=== PATIENT | male | born 1960 | race Caucasian/White ===

== ENCOUNTER 2016-09-21 12:10 | Day surgery (SDC) | payer MEDICARE, OTHER ==
[~2016-09-21] VITALS: Ht 177.8 cm; Wt 79.4 kg
[~2016-09-21 12:10] MED LIST: BENZTROPINE0.5 MG PO; DIVALPROEX SOD500 M3 PO; MIRTAZAPINE15 MG PO; OLANZAPINE10 MG PO
[2016-09-21 17:31] VITALS: BP 131/73
== END 2016-09-21 15:50 ==
LOC: ENDO 12:10
PROVIDERS: ATTEND Internal Medicine Gastroenterology
PROC: 0DBP8ZX Excision of Rectum, Via Natural or Artificial Opening Endoscopic, Diagnostic (ICD-10-PCS; principal; 2016-09-21)
DX: Z12.11 Encounter for screening for malignant neoplasm of colon (principal); K64.4 Residual hemorrhoidal skin tags; K64.8 Other hemorrhoids; K62.1 Rectal polyp

== ENCOUNTER 2017-07-12 15:07 | Emergency (ER) | payer MEDICARE, OTHER ==
[~2017-07-12] VITALS: Ht 177.8 cm; Wt 80.4 kg
[2017-07-12] MEDS ORDERED: BACTRIM DS1 TAB PO (15:54)
[2017-07-12] MEDS ORDERED: MUPIROCIN21 TOP (15:54)
[2017-07-12] MEDS ORDERED: CEPHALEXIN500 MG PO (15:54)
[2017-07-12 16:18] VITALS: BP 124/79
== END 2017-07-12 16:20 | disposition home or self-care (01) ==
LOC: ED 15:07
DX: L03.319 Cellulitis of trunk, unspecified (principal)

== ENCOUNTER 2017-11-07 16:27 | Emergency (ER) | payer MEDICARE, OTHER ==
[~2017-11-07] VITALS: Ht 177.8 cm; Wt 81.8 kg
[~2017-11-07 16:27] MED LIST changes: +BACTRIM DS1 TAB PO; +CEPHALEXIN500 MG PO; +MUPIROCIN21 TOP
[2017-11-07] MEDS ORDERED: BENZTROPINE2 MG PO (16:45)
[2017-11-07] MEDS ORDERED: DIVALPROEX SOD500 M1 PO (16:46)
[2017-11-07] MEDS ORDERED: AUGMENTIN875TAB PO (16:52)
[2017-11-07 16:55] VITALS: BP 122/81
== END 2017-11-07 16:55 | disposition home or self-care (01) ==
LOC: ED 16:27
PROC: 0C950ZZ Drainage of Upper Gingiva, Open Approach (ICD-10-PCS; principal; 2017-11-07)
DX: K04.7 Periapical abscess without sinus (principal)